=== PATIENT | male | born 1965 | race Caucasian/White ===

== ENCOUNTER → 2023-02-28 | Emergency (ER) | payer BC ==
[~2023-02-28] VITALS: Ht 167.6 cm; Wt 94.3 kg
[~2023-02-28] MED LIST: PRED20TA PO; TRIA15CR61 TOP; methylPREDNISolone sod succ 125mg/2ml vial IM ONE
--- NOTE | 2023-02-28 11:27 | NUR ---
AGREE WITH [facility]OCK[facility] LARA NURSING ASSESSMENT.
[2023-02-28 11:34] VITALS: BP 140/80; PULSE 64; RESP 16; TEMP 98.6; O2SAT 100
== END | disposition home or self-care (01) ==
LOC: ER 10:17
DX: L30.9 Dermatitis, unspecified (principal)
CPT/HCPCS: 96372; 99283; J2930